=== PATIENT | female | born 1980 | race African-American/Black ===

== ENCOUNTER 2017-03-29 17:13 | Emergency (ER) | payer BC, OTHER ==
[2017-03-29] MEDS ORDERED: traMADol HCl 50 MG TAB ONE (17:52)
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
== END 2017-03-29 18:45 | disposition home or self-care (01) ==
LOC: SCSER 17:13
DX: S16.1XXA Strain of muscle, fascia and tendon at neck level, initial encounter (principal); S29.012A Strain of muscle and tendon of back wall of thorax, initial encounter; S09.90XA Unspecified injury of head, initial encounter; J45.909 Unspecified asthma, uncomplicated; I10 Essential (primary) hypertension; V89.2XXA Person injured in unspecified motor-vehicle accident, traffic, initial encounter
CPT/HCPCS: 70450; 71020; 72125

== ENCOUNTER 2017-11-09 10:27 | Day surgery (SDC) | payer BC ==
[2017-11-08 10:53] VITALS: BMI 48.6
[~2017-11-09 10:27] MED LIST: Lidocaine 1% PF 5 ML VIAL ONE; PROPOFOL 200 MG/20 ML VIAL ONE
[2017-11-09 11:24] LABS: BHCG - Serum Negative (NEGATIVE); Pregs Control Background? CLEAR/WHITE (CLR/WHITE); Pregs Control Bar Appear? YES (CONTROL BAR)
--- NOTE | 2017-11-09 13:26 | OP ---
DATE OF PROCEDURE: 11/09/2017 TITLE OF PROCEDURE: Esophagogastroduodenoscopy esophageal dilation and biopsy. PREPROCEDURE DIAGNOSES: 1. Chronic reflux. 2. Dysphagia for solids and liquids. POSTPROCEDURE DIAGNOSES: 1. Examination to second portion of duodenum. 2. Normal appearing esophagus with random biopsies obtained at 35 cm from the incisors after dilatio n. 3. Status post 54 Yi Pace dilation of the entire esophagus. 4. Normal stomach. 5. Normal duodenum. PROCEDURE IN DETAIL: Written informed consent was obtained. The patient was brought to the endoscop y suite. Total intravenous anesthesia was provided by Dr. Lalo Lyons and associates. The patient w as placed in the left lateral decubitus position. A bite block was inserted into the mouth. A Penta x video diagnostic gastroscope was introduced into the oral cavity and the esophagus was carefully in tubated. The endoscope was advanced under direct visualization to the second portion of the duodenum . Endoscopic findings revealed a grossly normal appearing esophagus with no evidence of erosion, ulc er or stricture. Random biopsies were obtained in the lower esophagus at 35 cm for histology after t he dilation. The EG junction was estimated at 43 cm from the incisors. The stomach was entered and carefully examined. This included a retroflexed view of the cardia and fundus. The stomach exam was normal. The duodenum from the bulb to the second portion was also examined and appeared grossly nor mal. A 54-Yi Pace dilator was used to dilate the entire esophagus without resistance during t he dilation. The endoscope was reintroduced to reassess the esophagus post-dilation and to obtain th e biopsies. Following this, the upper digestive tract was decompressed as the endoscope was complete ly removed from the patient. There were no immediate complications. She was transferred to the day stay surgery area for post-procedure monitoring. RECOMMENDATIONS: 1. Await biopsy results. 2. Ask the patient to call me in 1 week for biopsy results. 3. Increase omeprazole to 40 mg b.i.d. for 6-8 weeks. 4. Follow up in the office in one month.
== END 2017-11-09 14:57 | disposition home or self-care (01) ==
LOC: SDC 10:27
PROVIDERS: ATTEND Internal Medicine Gastroenterology
PROC: 0D758ZZ Dilation of Esophagus, Via Natural or Artificial Opening Endoscopic (ICD-10-PCS; principal; 2017-11-09)
PROC: 0DB58ZX Excision of Esophagus, Via Natural or Artificial Opening Endoscopic, Diagnostic (ICD-10-PCS; principal; 2017-11-09)
DX: K20.9 Esophagitis, unspecified (principal); K21.9 Gastro-esophageal reflux disease without esophagitis; G47.30 Sleep apnea, unspecified; R73.03 Prediabetes; I10 Essential (primary) hypertension; J45.909 Unspecified asthma, uncomplicated; E66.9 Obesity, unspecified; Z68.42 Body mass index [BMI] 45.0-49.9, adult; Z79.84 Long term (current) use of oral hypoglycemic drugs; Z79.899 Other long term (current) drug therapy; Z88.5 Allergy status to narcotic agent; Z88.6 Allergy status to analgesic agent; Z88.8 Allergy status to other drugs, medicaments and biological substances; Z98.890 Other specified postprocedural states
CPT/HCPCS: 36415; 84703; 88305; 88312; 88313; J2001; J2704

== ENCOUNTER 2018-08-16 13:17 | Outpatient (CLI) | payer OTHER ==
--- NOTE | 2018-08-16 14:05 | MMO ---
BILATERAL SCREENING MAMMOGRAM: DATE: 08/16/18 HISTORY: 38-year-old female for baseline screening mammography. COMPARISON: None. FINDINGS: Bilateral MLO and CC views of the breasts show scattered fibroglandular breast tissue. Benign-appeari ng calcifications are seen in both breasts. There is no evidence of suspicious mass, suspicious clust er of microcalcifications, or area of architectural distortion. Interpretation of this mammogram was performed with the assistance of computer-aided detection. IMPRESSION: BIRADS 2: Benign Finding(s) Annual screening mammography is recommended. POS: [facility]
== END 2018-08-16 13:18 | disposition home or self-care (01) ==
LOC: SCSMAMMO 13:17
PROVIDERS: ATTEND Family Medicine
DX: Z12.31 Encounter for screening mammogram for malignant neoplasm of breast (principal)
CPT/HCPCS: 77067

== ENCOUNTER 2020-09-13 11:10 | Outpatient (CLI) | payer BC | END 2020-09-13 11:11 | disposition home or self-care (01) | LOC: DTY/OP 11:10 | PROVIDERS: ATTEND Physician Assistant | DX: E78.00 Pure hypercholesterolemia, unspecified (principal) | CPT/HCPCS: 97802 ==

== ENCOUNTER 2023-12-22 09:48 | Outpatient (CLI) | payer BC | END 2023-12-22 09:49 | disposition home or self-care (01) | LOC: DTY/OP 09:48 | PROVIDERS: ATTEND Surgery | DX: E66.01 Morbid (severe) obesity due to excess calories (principal) | CPT/HCPCS: 97802 ==

== ENCOUNTER 2024-01-11 09:41 | Outpatient (CLI) | payer BC ==
[2024-01-11 11:12] LABS: #Basophils 0.07 10x3/uL (0.0-0.2); #Eosinphils 0.29 10x3/uL (0.0-0.5); #Monocytes 0.47 10x3/uL (0.0-1.1); #Neutrophils 3.28 10x3/uL (1.5-8.4); %Basophils 1.1 % (0.0-2.0); %Eosinophils 4.6 % (0.0-6.0); %Monocytes 7.5 % (0.0-10.0); %Neutrophils 52.6 % (40.0-75.0); Hemoglobin 13.7 g/dL (12.0-15.5); Mean Corpuscular HGB CONC 34.3 g/dL (32.0-36.0); Mean Corpuscular Volume 84.7 fL (81.6-98.3); Mean Platelet Volume 10.3 fL (7.4-10.4); Platelet Count 312 10x3/uL (150-450); RBC Distribution Width 15.2 % (11.5-14.5); Red Blood Cell (RBC) Count 4.72 10x6/uL (3.90-5.03); White Blood Cell (WBC) Count 6.2 10x3/uL (3.5-10.5)
[2024-01-11 12:12] LABS: BHCG - Serum Negative (NEGATIVE); Pregs Control Background? CLEAR/WHITE (CLR/WHITE); Pregs Control Bar Appear? YES (CONTROL BAR)
[2024-01-11 12:28] LABS: ALT (SGPT) 44 U/L (8-55); AST (SGOT) 38 U/L (5-34); Albumin 4.2 g/dL (3.5-5.0); Alkaline Phosphatase 57 U/L (40-110); Anion Gap 13 mmol/L (10-20); BUN (Urea Nitrogen) 14 mg/dL (7.0-18.7); Bilirubin, Total 0.5 mg/dL (0.2-1.2); Calc. Creatinine Clearance 0 mL/min (70-130); Calcium 9.5 mg/dL (7.8-10.44); Carbon Dioxide 23 mmol/L (22-29); Chloride 102 mmol/L (98-107); Estimated GFR 80; Globulin 3.3 g/dL (2.4-3.5); Glucose 137 mg/dL (70-105); Potassium 4.1 mmol/L (3.5-5.1); Protein, Total 7.5 g/dL (6.0-8.3); Sodium 134 mmol/L (136-145)
== END 2024-01-11 09:42 | disposition home or self-care (01) ==
LOC: LABBT 09:41
PROVIDERS: ATTEND Surgery
DX: Z01.818 Encounter for other preprocedural examination (principal); E66.01 Morbid (severe) obesity due to excess calories
CPT/HCPCS: 80053; 83036; 84703; 85025; 93005; 93010